=== PATIENT | male | born 1950 | race Caucasian/White ===

== ENCOUNTER 2016-11-20 11:55 | Day surgery (SDC) | payer MEDICARE, OTHER ==
--- NOTE | 2016-11-19 12:28 | PCM.ANEPRE ---
Anesthesia Pre-Op Review Reason for Review: STOP BANG 12/16 Anesthesia Recommendations: Proceed with Procedure Additional Comments Reviewed chart. OK to proceed with procedure, follow AMMON protocol. Low risk surgery. Micky Yeh MD Nov 19, 2016 12:28
[~2016-11-20] VITALS: Ht 167.6 cm; Wt 88.7 kg
[2016-11-20] VITALS (10 sets, daily range): BP systolic 149–164; BP diastolic 82–96; PULSE 78–90; RESP 13–17; O2SAT 90–98
[~2016-11-20 11:55] MED LIST: ACET-2605 PO; ATRV10T PO; BENA20TA PO; CHOL100045 PO; Dexamethasone 4 mg/mL Inj IVPUSH PRN; EPHEDrine Sulfate 50 mg/mL Inj IVPUSH PRN; HYDROmorphone 1 mg/mL Inj IVPUSH PRN; Labetalol 5 mg/mL 4 mL Inj IV PRN; Lactated Ringer's 1,000 ML IV SCH; Lactated Ringer's 500 ML IV PRN; MetoCLOpramide 5 mg/mL 2 mL Inj IVPUSH PRN; Ondansetron 2 mg/mL 2 mL Inj IVPUSH PRN; Phenylephrine 10,000 mCg/mL Inj IVPUSH PRN; TAMS0.4C98 PO; fentaNYL-PF 50 mCg/mL 2 mL Inj IVPUSH PRN
[2016-11-20] MEDS ORDERED: Ketamine 10 mg/mL 20 mL Inj ONE (11:56)
[2016-11-20] MEDS ORDERED: Lidocaine PF 1% 30 mL Inj ONE (11:56)
[2016-11-20] MEDS ORDERED: fentaNYL-PF 50 mCg/mL 2 mL Inj ONE (11:56)
[2016-11-20] MEDS ORDERED: Propofol 10,000 mCg/mL 20 mL Inj ONE (11:56)
[2016-11-20] MEDS: Lactated Ringer's 1,000 ML IV SCH ×2 (12:48→13:38)
[2016-11-20] MEDS ORDERED: FINA5TAB9 PO (12:52)
--- NOTE | 2016-11-20 13:33 | PCM.HPANE ---
Patient Data Date of Service: Nov 20, 2016 Surgeon Admitting Provider: Attending Provider:Maribel Hugo MD Primary Care Physician:Andres Baxter MD Other Provider:Vijay Tripp Anesthesia Reason for Visit Urethral Lesion Ht/WT & BMI Height (Feet): 5 Height (Inches): 6 Weight (Kilograms): 88.7 Body Mass Index 31.00 Allergies Uncoded Allergies: BEE STINGS (Allergy, Unknown, ANAPHYLAXIS, 11/20/16) Past Anesthesia History Anesthesia History: Denies:: Anesthesia Reactions, Malignant Hyperthermia Diabetes History Hx Diabetes?: No MRSA MRSA: No Medications Hypertension Medication: Yes (BENAZEPRIL) Home Meds Incl Beta Nya: No Reported Medications Finasteride 5 Mg Tablet5 Mg PO DAILY 30 Days Ref 0 11/20/16 Cholecalciferol (Vitamin D3) (Vitamin D)1,000 Unit Capsule2,000 Unit PO DAILY # 1 BOTTLE Ref 0 11/19/16 Tamsulosin (Flomax)0.4 Mg Capsule0.4 Mg PO DAILY Ref 0 11/19/16 Benazepril 20 Mg [id number] Mg PO BID 11/19/16 Atorvastatin (Lipitor)10 Mg Tab10 Mg PO DAILY Ref 0 11/19/16 Acetaminophen/Diphenhydramine (Tylenol Pm Ex-Strength Caplet)500 Mg-25 Mg Tablet2 Each PO HS 11/19/16 History History of ENT Problems?: No Denture Type: Partial- Upper Partial- Lower Hx of Heart Problems?: Yes Cardiovascular History: Positive for:: Hypertension (HYPERLIPIDEMIA) Denies:: Heart Murmur Hx of Respiratory Problem?: Yes Respiratory History: Positive for:: Use of C-PAP Machine (SNORES) Hx Neurologic Problems?: No Hx of GI Problems?: No Hx of Problems?: Yes Genitourinary History: Positive for:: Kidney Stones (SMALL LT RENAL STONE) Other Pertinent History: C/OF INTERMITTANT HEMATURIA,NOCTURIA,URGENCY, SLOWED STREAM BLADDER TUMOR (?URETHRAL LESION?)=CURRENT PROBLEM S/P MULT. CYSTOS Male Hx: Positive for:: Prostate Problems (S/P PROSTATE BX (NEG) 2010 CURRENT BPH W/ MILD OBSTRUCTION) Denies:: Scrotal Mass Testicular Surgery Skin History: Denies:: History Skin Disorders? Pressure Ulcers Hx Musculoskeletal Problems?: Yes Musculoskeletal History: Positive for:: Osteoarthritis Hx of Psycho/Social Problems?: No Hx Surgeries?: Yes (MULT. CYSTOS,PROSTATE BX 2011) Hx Any Other Health Problems?: Yes Other History: Denies:: Cancer Endocrine Disease Hospitalization Thyroid Disease Hx Diabetes: No Have You Smoked inLast 12 mo: Yes (QUIT RECENTLY) Stop/Bang S-Snoring: Do You Snore Loudly: Yes T-Tired: feel tired, fatigued: No O-Obsered: Observed not breath: Yes P-Blood Pressure: treated: Yes B- Body Mass Index > 35 kg/m2: No A- Age over 50: Yes N- Neck Large Circumference: No G- Gender Male: Yes AMMON Total Score: 5 AMMON Risk Assessment: High Risk, =/>3 Yes Risk Assessment Category Category 1A: Patient has history of documented sleep apnea, and HAS NOT received any narcotic, sedative or anesthesia administration during this stay. Category 1B: Patient has history of documented sleep apnea, and HAS received any narcotic , sedative or anesthesia administration during this stay Category 2: Patient has SUSPECTED Obstructive Sleep Apnea, and HAS received any narcotic , sedative or anesthesia administration during this stay. Category 3: Patient has SUSPECTED Obstructive Sleep Apnea and HAS NOT received narcotic, sedative or anesthesia administration during this stay. Category 4: Outpatient in Procedural Areas with known sleep apnea or who screen positive for High Risk via the STOP/BANG questionnaire. Exam Exam Vital Signs Vital Signs Date Time Temp Pulse Resp B/P Pulse Ox O2 Delivery O2 Flow Rate FiO2 11/20/16 12:29 37.1 90 16 164/82 95 Room Air General Appearance: Alert, Oriented X3, Cooperative, No Acute Distress HEENT/AIRWAY: MP 2 Lungs: Clear to Auscultation, Normal Air Movement Heart: Exam Unremarkable, Regular Rate/Rhythm, No Murmurs/Rubs/Gallops Meds/Labs/Diagnostics Admission Meds Current Medications Lactated Ringer's (Lr) 1,000 ml @ 120 mls/hr [id number] IV Last administered on t 12:48; Start 11/20/16 at 05:00; Stop 11/20/16 at 13:24; Status DC Plan Impression Patient chart reviewed, patient interviewed and anesthestic plan with risks, benefits, and alternatives discussed, and informed consent obtained. NPO Status: 11/20 ASA Physical Status: ASA2 Mod Systemic Disease Anesthetic Plan: MAC Bene/Risks/Altern/Consents: Yes HP Complete Prior to Induction: Yes Jorge Razo MD Nov 20, 2016 13:33
[2016-11-20] MEDS: levoFLOXacin Inj 500 MG in IV Premix 1 EACH IV SCH ×2 (13:38→13:50)
[2016-11-20] MEDS ORDERED: Belladonna Alk-Opium 60 mg Rectal Suppository RECTAL ONE (13:53)
[2016-11-20] MEDS ORDERED: HYDROcodone-APAP 5-325 mg Tablet PO PRN (14:40)
[2016-11-20] MEDS ORDERED: Ondansetron 8 mg ODT Tablet PO PRN (14:40)
--- NOTE | 2016-11-20 14:59 | PCM.ANEP1 ---
Post Anesthesia Phase 1 PACU Phase 1 Assessment Date of Service: Nov 20, 2016 Vital Signs Vital Signs Date Time Temp Pulse Resp B/P Pulse Ox O2 Delivery O2 Flow Rate FiO2 11/20/16 14:55 36.5 85 17 153/90 97 Nasal Cannula 2 11/20/16 14:50 84 15 149/95 97 Nasal Cannula 2 11/20/16 14:45 82 14 151/92 94 Nasal Cannula 2 11/20/16 14:40 83 14 162/90 90 Room Air 11/20/16 14:37 36.9 85 14 163/92 93 Room Air 11/20/16 12:29 37.1 90 16 164/82 95 Room Air Anesthetic Administered: GA Level of Alertness: Sleepy, easy to arouse Pain: No Nausea or Vomiting: No Oxygen Delivery: Room Air Lungs: Clear to Auscultation, Normal Air Movement Jorge Razo MD Nov 20, 2016 14:59
--- NOTE | 2016-11-20 14:59 | PCM.ANEP2 ---
Post Anesthesia Evaluation ASA/CMS Post Anesthesia VS in Patient's Normal Range?: Yes Resp Stable; Airway Patent?: Yes CV Function & Hydration Stable: Yes Mental Status Recovered?: Yes Pain control Satisfactory?: Yes N/V Control Satisfactory?: Yes Jorge Razo MD Nov 20, 2016 14:59
--- NOTE | 2016-11-21 23:46 | OP ---
[address] [address] OPERATIVE REPORT PATIENT: CAROLINE PHILLIPS : 1950 MR#: [id number] ADMIT: 11/20/2016 JOB ID: [id number] DATE OF SURGERY: 11/20/2016 PROCEDURE NAME: 1 Transurethral resection of prostate/prostatic urethra, 2 and bladder neck. SURGEON: Maribel Hugo MD. ANESTHESIA: General. PREOPERATIVE DIAGNOSIS(ES): Microscopic hematuria and bladder and urethral lesions of the bladder neck and proximal prostatic urethra. POSTOPERATIVE DIAGNOSIS(ES): Microscopic hematuria and bladder and urethral lesions of the bladder neck and proximal prostatic urethra. INDICATIONS: The patient is a 66-year-old former smoker, who, on workup for microscopic hematuria, had no upper tract changes, but had some polypoid masses of the bladder neck and some changes to his prostatic urethral mucosa with some erythema, frondy changes, and dystrophic calcifications. Was set up for biopsy of these areas. PROCEDURE IN DETAIL: After appropriate informed consent was obtained, the patient was brought to the operating room. Received IV antibiotics before onset of procedure. SCDs were placed. Adequate general anesthesia was induced. He was carefully placed in dorsal lithotomy position. All pressure points were carefully padded. Cleaned, prepped, and draped in the usual sterile fashion. Rigid scope was introduced in the patient's bladder which was surveyed systematically with a 30 and a 70-degree lens. The remainder of the patient's bladder was clear. There was moderate trabeculation, but no other lesions. We then easily identified the bladder neck polypoid lesions and then the area of frondy erythematous change with the dystrophic calcifications in the patient's left sided bladder neck and into the prostatic urethra on this side. We converted over to the standard resectoscope and took a biopsy initially of the polypoid lesions of the right-sided bladder neck and then proceeded to resect into the prostatic urethra and bladder neck on the left. The area was friable with good blood supply requiring some electrocautery to clear the urine. A number of biopsies were taken, some deeper down in the prostate in order to get the urine clear and the bladder neck open. First Aid Trainer pieces were taken down into the prostatic urethra on this side. Electrocautery was used for hemostasis. At termination of the procedure, the urine was clear. The patient's bladder was drained. He was awakened, taken in stable condition to the postanesthesia care unit having tolerated it very well. JANNA
--- NOTE | 2016-11-22 11:40 | PATH ---
SURGICAL PATHOLOGY Attending Physician:Maribel Hugo MD CASE STATUS: Signed Out PATIENT NAME: CAROLINE PHILLIPS PID: [id number] : 1950 DATE COLLECTED:11/20/2016 00:00 SPECIMEN: 1: Bladder Neck 2: Urethra, Biopsy CLINICAL HISTORY: URETHRAL LESION, MICROHEMATURIA WITH BLADDER NECK BULLOUS-PAPILLARY CHANGE, PROXIMAL PROSTATIC URETHRAL ERYTHEMA + BULLOUS PAPILLARY, UNDERTERMINDATED CHANGE WITH SMALL DYSTROPHIC CALCIFICATION. SEEN IN CLINIC 1). BLADDER NECK 2). PROSTATIC URETHRA FINAL DIAGNOSIS: 1.BIOPSY, URINARY BLADDER NECK: CHANGES CONSISTENT WITH CHRONIC BULLOUS CYSTITIS. Negative for atypia and malignancy. 2.BIOPSIES, PROSTATIC URETHRA: NODULAR HYPERPLASIA OF GLANDS AND STROMA OF PROSTATE TISSUE. MILD CHRONIC INFLAMMATION OF THE PROSTATIC URETHRA WITH FOCAL BULLOUS CHANGE, NEGATIVE FOR ATYPIA. ICD10 CODE N40.1 GROSS DESCRIPTION: The specimen is received in two formalin filled containers labeled with the patient's name. 1). The specimen is sublabeled "bladder neck" and consists of a 0.5 x 0.4 x 0.3 CM portion of tissue which is entirely submitted in cassette 1A. 2). The specimen is sublabeled "are multiple fragments of pink-alcantara tissue which aggregate to 2.5 x 2.0 x 0.6 CM. The specimen is entirely submitted in cassettes 2A, 2B. 11/21/2016 [facility] MICRO DESCRIPTION: See diagnosis. ICD-9 CODES: CPT CODES: 1: 27989 2: 61110 Electronically Signed Out Devin Pedersen MD [facility] Pathology [facility] [address], [place] [address] Technical component performed at [facility], [facility] [address], [place], [address]
== END 2016-11-20 23:59 | disposition home or self-care (01) ==
LOC: SAS 11:55
PROVIDERS: ATTEND Urology
DX: N40.1 Benign prostatic hyperplasia with lower urinary tract symptoms (principal); N41.1 Chronic prostatitis; N30.20 Other chronic cystitis without hematuria; N36.9 Urethral disorder, unspecified; I10 Essential (primary) hypertension; Z79.899 Other long term (current) drug therapy; M19.90 Unspecified osteoarthritis, unspecified site; Z87.891 Personal history of nicotine dependence
CPT/HCPCS: 52214; 52234; J2250; J3010; J7120

== ENCOUNTER 2017-01-10 07:56 | Day surgery (SDC) | payer MEDICARE, OTHER ==
--- NOTE | 2017-01-09 13:04 | PCM.HPANE ---
Patient Data Surgeon Admitting Provider: Attending Provider:Maribel Hugo MD Primary Care Physician:Andres Baxter MD Other Provider:[facility] Anesthesia Reason for Visit Urethral Disorder, Unspecified Ht/WT & BMI Body Mass Index Allergies Uncoded Allergies: BEE STINGS (Allergy, Unknown, ANAPHYLAXIS, 11/20/16) Past Anesthesia History Anesthesia History: Denies:: Abnormal Airway, Anesthesia Reactions, Difficult Intubation, Fam Anesthesia Reaction, Fam Malignant Hypertherm, Malignant Hyperthermia Diabetes History Hx Diabetes?: No MRSA MRSA: No Medications Reported Medications Multivitamin (Multivitamins)1 Each Capsule1 Each PO DAILY 01/10/17 Finasteride 5 Mg Tablet5 Mg PO DAILY 30 Days Ref 0 11/20/16 Cholecalciferol (Vitamin D3) (Vitamin D)1,000 Unit Capsule2,000 Unit PO DAILY # 1 BOTTLE Ref 0 11/19/16 Tamsulosin (Flomax)0.4 Mg Capsule0.4 Mg PO DAILY Ref 0 11/19/16 Benazepril 20 Mg [id number] Mg PO DAILY 11/19/16 Atorvastatin (Lipitor)10 Mg Tab10 Mg PO DAILY Ref 0 11/19/16 Acetaminophen/Diphenhydramine (Tylenol Pm Ex-Strength Caplet)500 Mg-25 Mg Tablet2 Each PO HS 11/19/16 History History of ENT Problems?: No HEENT History: Denies:: Abnormal Airway Cataracts Difficult Intubation Dysphagia Glaucoma Hearing Problem Sinus Problem TMJ Denture Type: Partial- Lower Teeth Condition: Within Normal Limits Hx of Heart Problems?: Yes Cardiovascular History: Positive for:: Hypertension (HYPERLIPIDEMIA) Denies:: Heart Murmur Hx of Respiratory Problem?: Yes Respiratory History: Positive for:: Use of C-PAP Machine (SNORES) Hx Neurologic Problems?: No Hx of GI Problems?: No Hx of Problems?: Yes Genitourinary History: Positive for:: Kidney Stones (SMALL LT RENAL STONE) Male Hx: Positive for:: Prostate Problems (S/P PROSTATE BX (NEG) 2010 CURRENT BPH W/ MILD OBSTRUCTION) Denies:: Scrotal Mass Testicular Surgery Skin History: Denies:: History Skin Disorders? Pressure Ulcers Hx Musculoskeletal Problems?: Yes Hx of Psycho/Social Problems?: No Hx Surgeries?: Yes (MULT. CYSTOS,PROSTATE BX 2010) Hx Any Other Health Problems?: Yes Other History: Denies:: Cancer Endocrine Disease Hospitalization Thyroid Disease Hx Diabetes: No Have You Smoked inLast 12 mo: Yes (QUIT RECENTLY) Stop/Bang Risk Assessment Category Category 1A: Patient has history of documented sleep apnea, and HAS NOT received any narcotic, sedative or anesthesia administration during this stay. Category 1B: Patient has history of documented sleep apnea, and HAS received any narcotic , sedative or anesthesia administration during this stay Category 2: Patient has SUSPECTED Obstructive Sleep Apnea, and HAS received any narcotic , sedative or anesthesia administration during this stay. Category 3: Patient has SUSPECTED Obstructive Sleep Apnea and HAS NOT received narcotic, sedative or anesthesia administration during this stay. Category 4: Outpatient in Procedural Areas with known sleep apnea or who screen positive for High Risk via the STOP/BANG questionnaire. Exam Exam General Appearance: Alert, Oriented X3, Cooperative HEENT/AIRWAY: MP 2, Neck Movement (from gee), Mouth Opening Lungs: Clear to Auscultation Heart: Exam Unremarkable Plan Impression Patient chart reviewed, patient interviewed and anesthestic plan with risks, benefits, and alternatives discussed, and informed consent obtained. ASA Physical Status: ASA2 Mod Systemic Disease Anesthetic Plan: GA Bene/Risks/Altern/Consents: Yes HP Complete Prior to Induction: Yes Sanjeev Sweeney MD Jan 09, 2017 13:04
[~2017-01-10] VITALS: Ht 167.6 cm; Wt 86.4 kg
[2017-01-10] VITALS (16 sets, daily range): BP systolic 152–188; BP diastolic 89–104; PULSE 77–105; RESP 10–18; O2SAT 94–97
[~2017-01-10 07:56] MED LIST changes: -Dexamethasone 4 mg/mL Inj IVPUSH PRN; -EPHEDrine Sulfate 50 mg/mL Inj IVPUSH PRN; +FINA5TAB9 PO; -HYDROmorphone 1 mg/mL Inj IVPUSH PRN; -Labetalol 5 mg/mL 4 mL Inj IV PRN; -Lactated Ringer's 500 ML IV PRN; -MetoCLOpramide 5 mg/mL 2 mL Inj IVPUSH PRN; -Ondansetron 2 mg/mL 2 mL Inj IVPUSH PRN; -Phenylephrine 10,000 mCg/mL Inj IVPUSH PRN; -fentaNYL-PF 50 mCg/mL 2 mL Inj IVPUSH PRN; +levoFLOXacin Inj 500 MG in IV Premix 1 EACH IV ONE
[2017-01-10] MEDS ORDERED: fentaNYL-PF 50 mCg/mL 2 mL Inj ONE (07:57)
[2017-01-10] MEDS ORDERED: Propofol 10,000 mCg/mL 20 mL Inj ONE (07:57)
[2017-01-10] MEDS ORDERED: MULT1CAP33 PO (08:34)
[2017-01-10] MEDS ORDERED: Acetaminophen IV 1,000 MG in IV Premix 1 EACH IV ONE (09:30)
[2017-01-10] MEDS ORDERED: Lactated Ringer's 500 ML IV PRN (09:40)
[2017-01-10] MEDS ORDERED: Atropine 0.4 mg/mL Inj IVPUSH PRN (09:40)
[2017-01-10] MEDS ORDERED: HYDROmorphone 1 mg/mL Inj IVPUSH PRN (09:40)
[2017-01-10] MEDS ORDERED: Labetalol 5 mg/mL 4 mL Inj IV PRN (09:40)
[2017-01-10] MEDS ORDERED: Dexamethasone 4 mg/mL Inj IVPUSH PRN (09:40)
[2017-01-10] MEDS ORDERED: Phenylephrine 10,000 mCg/mL Inj IVPUSH PRN (09:40)
[2017-01-10] MEDS ORDERED: Lactated Ringer's 1,000 ML IV SCH (09:40)
[2017-01-10] MEDS ORDERED: EPHEDrine Sulfate 50 mg/mL Inj IVPUSH PRN (09:40)
[2017-01-10] MEDS ORDERED: Ondansetron 2 mg/mL 2 mL Inj IVPUSH PRN (09:40)
[2017-01-10] MEDS ORDERED: Gentamicin 40 mg/mL 2 mL Inj IRRIGATION ONE (10:13)
[2017-01-10] MEDS ORDERED: Belladonna Alk-Opium 60 mg Rectal Suppository RECTAL ONE (10:35)
[2017-01-10] MEDS ORDERED: HYDROcodone-APAP 5-325 mg Tablet PO PRN (12:10)
[2017-01-10] MEDS ORDERED: Ondansetron 8 mg ODT Tablet PO PRN (12:10)
--- NOTE | 2017-01-10 12:17 | PCM.ANEP1 ---
Post Anesthesia PACU Phase 1 Assessment Vital Signs Vital Signs Date Time Temp Pulse Resp B/P Pulse Ox O2 Delivery O2 Flow Rate FiO2 01/10/17 12:10 36.7 105 16 188/104 94 Room Air 01/10/17 08:11 36 85 16 152/89 94 Room Air Anesthetic Administered: GA Level of Alertness: Awake, talking BISHOP's with Equal Strength: Yes Pain: Yes Pain Scale Score: 5 Nausea or Vomiting: No CV Function & Hydration Stable: Yes Airway Device: Lungs: Normal Air Movement PACU Phase 2 Assessment Complications: No Follow up Care: No Patient Instructions Provided: N/A Sanjeev Sweeney MD Jan 10, 2017 12:17
[2017-01-10] MEDS ORDERED: Phenazopyridine 97.5 mg Tablet PO PRN (12:20)
[2017-01-10] MEDS: fentaNYL-PF 50 mCg/mL 2 mL Inj IVPUSH PRN ×3 (12:33→12:56)
--- NOTE | 2017-01-13 09:35 | OP ---
[address] [address] OPERATIVE REPORT PATIENT: CAROLINE PHILLIPS : 1950 MR#: [id number] ADMIT: 01/10/2017 JOB ID: [id number] DATE OF SURGERY: 01/10/2017 ANESTHESIA: General. PREOPERATIVE DIAGNOSIS(ES): 1. Urinary retention. 2. Benign prostatic hypertrophy. POSTOPERATIVE DIAGNOSIS(ES): 1. Urinary retention. 2. Benign prostatic hypertrophy. PROCEDURE: Transurethral resection of prostate. SURGEON: Maribel Hugo MD INDICATIONS: The patient is a 66-year-old gentleman with history of BPH and lower urinary tract symptoms who was evaluated for gross hematuria. Found to have some erythematous areas and polypoid lesions which were unclear if these were malignant in nature around the bladder neck, or benign. He underwent transurethral biopsy of the bladder neck, at which time the degree of his outlet obstruction was noted. That procedure was carried out with the resectoscope. The patient when initially passing voiding trial fairly on, ultimately failed and continued to fail to empty adequately in the aftermath of his transurethral biopsy. This was done on November 20, 2016. Failed numerous voiding trials in the interim. Declined to learn clean intermittent catheterization. His pathology from the original biopsies was all negative, benign changes with BPH. He was counseled about risks and benefits of various treatment options, and elected transurethral resection of the prostate. The patient had a urine culture done. He was treated appropriately on culture specific antibiotics prior to his procedure. PROCEDURE IN DETAIL: After appropriate informed consent was obtained, the patient was brought to the operating room. He received IV antibiotics culture specific prior to onset of the procedure. SCDs were placed. Adequate general anesthesia induced. He was carefully placed in dorsal lithotomy position, all pressure points carefully padded. Cleaned, prepped, and draped in the usual sterile fashion. Bañuelos catheter was removed. His urine was noted to be minimally cloudy. The first bag of tube irrigation solution we treated with vancomycin. The bladder was surveyed systematically. Ureteral orifices were identified. He had large prostate kissing lobes, quite friable. We removed the cystoscope and introduced the 27-German sheath outer diameter resectoscope sheath, and this was advanced into the patient's bladder, and then we proceeded to resect the prostate. This was done in quadrants both proximal and distal. Care was taken to avoid the ureteral orifices. Care was taken to avoid passing the verumontanum and the patient's sphincter. We resected initially with the cutting loop. The patient's prostate was quite vascular. Once we had resected the bulk of tissue and providing a clear view up in the patient's bladder, we switched over to the PlasmaButton which was used for the remainder of the procedure. At the termination of the procedure, the prostate bed was opened. Hemostasis was quite good. His bladder was drained. Chips were evacuated, sent for permanent pathology. We placed a 22-German, 2-way catheter. This was irrigated out, found to be quite clear, left to gravity drainage. He was awakened and taken in stable condition to the postanesthesia care unit.
--- NOTE | 2017-01-15 11:04 | PATH ---
SURGICAL PATHOLOGY Attending Physician:Maribel Hugo MD CASE STATUS: Signed Out PATIENT NAME: CAROLINE PHILLIPS PID: [id number] : 1950 DATE COLLECTED:01/10/2017 22:46 SPECIMEN: Prostate, Chips CLINICAL HISTORY: BENIGN PROSTATIC HYPERPLASIA WITH URINARY OBSTRUCTION TURP CHIPS. H/O TUR (SEE REQ) URINARY RETENTION H/O HEMATURIA 1). RESECTED PROSTATE TISSUE FINAL DIAGNOSIS: Prostate, Transurethral Resection (Weight 12.2 grams): - Benign prostatic tissue with acute and chronic inflammation in a background of stromal and glandular hyperplasia; negative for atypia and malignancy. - Reactive urothelium with acute and chronic cystitis, inflamed granulation tissue, associated calcifications, and giant cells; some epithelial regions are focally obscured by electrocautery artifact; negative for urothelial dysplasia and malignancy. ICD10: N40.1 GROSS DESCRIPTION: The specimen is received in formalin, labeled with the patient's name, sublabeled as resected prostate tissue and consists of multiple fragments of alcantara-white rubbery prostatic tissue (12.2 g, 8.0 x 4.5 x 1.5 cm in aggregate). Section code: (A-H) prostatic tissue. Specimen entirely submitted. 01/12/17 ICD-9 CODES: CPT CODES: 00450 Electronically Signed Out Mere Reeves MD [facility] Pathology [facility] [address], [place] [address] Technical component performed at [facility], [facility] [address], [place], [address]
== END 2017-01-10 23:59 | disposition home or self-care (01) ==
LOC: SAS 07:56
PROVIDERS: ATTEND Urology
PROC: 0VT08ZZ Resection of Prostate, Via Natural or Artificial Opening Endoscopic (ICD-10-PCS; principal; 2017-01-10 09:45)
DX: N40.1 Benign prostatic hyperplasia with lower urinary tract symptoms (principal); R33.8 Other retention of urine; R39.16 Straining to void; R35.0 Frequency of micturition; R35.1 Nocturia; I10 Essential (primary) hypertension; E78.5 Hyperlipidemia, unspecified; Z87.891 Personal history of nicotine dependence
CPT/HCPCS: 52601; 88307; J1170; J1580; J3010; J7120